=== PATIENT | female | born 1970 | race Caucasian/White ===

== ENCOUNTER 2019-11-22 00:25 | Outpatient (CLI) | payer OTHER, SELFPAY ==
[2019-11-22 17:31] LABS: SARS-CoV-2 RNA PCR Negative
== END 2019-11-22 00:26 | disposition home or self-care (01) ==
LOC: ANHCOVIDDT 00:25
PROVIDERS: PCP Internal Medicine; Visit Provider Internal Medicine Gastroenterology
DX: Z01.812 Encounter for preprocedural laboratory examination (principal); Z20.828 Contact with and (suspected) exposure to other viral communicable diseases
CPT/HCPCS: 87635; C9803; U0003

== ENCOUNTER 2019-11-24 01:47 | Day surgery (SDC) | payer OTHER, SELFPAY ==
[2019-11-15 14:51] VITALS: BMI 32.1
[2019-11-24 07:29] VITALS: BP 147/80; PULSE 72; RESP 16; TEMP 35.7; O2SAT 97
[2019-11-24] MEDS: LACTATED RINGERS 1,000 ML 150 ML IV CONT (07:44)
--- NOTE | 2019-11-24 07:49 | WPDANESEPPF ---
Anes - Initial Pre Proc Eval Procedure: Operation Date: 11/24/19 08:30 Proposed Procedures p Screening Colonoscopy - Neville Nunez MD Date/Time: 11/24/19 07:49 Surgeon: Neville Nunez MD Pre Op Diagnosis: Neoplasm Screening Patient Data Age: 49 Gender: F Height: 5 ft 4 in Weight: 87.5 kg Last Vital Signs Temp 35.7 C L 11/24/19 07:29 Pulse 72 11/24/19 07:29 Resp 16 11/24/19 07:29 BP 147/80 H 11/24/19 07:29 Pulse Ox 97 11/24/19 07:29 Allergies Allergy/AdvReac Type Severity Reaction Status Date / Time No Known Allergies Allergy Verified 11/24/19 07:27 Home Medications Medication Instructions Recorded Confirmed Type alprazolam 0.25 mg PO PRN PRN 11/15/19 11/24/19 History ascorbic acid (vitamin C) [Vitamin 1,000 mg PO DAILY 11/15/19 11/24/19 History C] losartan 50 mg PO DAILY 11/15/19 11/15/19 History multivitamin 1 cap PO DAILY 11/15/19 11/24/19 History omega 8-eor-alx-fish oil [Fish Oil] 1 cap PO DAILY 11/15/19 11/24/19 History gabapentin 100 mg PO HS 11/24/19 11/24/19 History meloxicam 75 mg PO BID 11/24/19 11/24/19 History Patient hx anesthesia problems: none Family hx anesthesia problems: none PMFSH Past Medical History Medical History HTN (hypertension) Obesity Smoker Surgical History Surgical History (Updated 11/24/19 @ 07:50 by Prashanth Ramirez MD) H/O arthroscopic knee surgery History of section Hx of tonsillectomy Social History Social History (Updated 11/24/19 @ 07:50 by Prashanth Ramirez MD) Smoking packs per day: 1 Smoking cigarettes per day: 20.0 Smoking status: Current every day smoker Anes - Eval Final PreProcedure Day of Procedure 11/24/19 07:49 Patient weight: obese Heart: regular rate and rhythm Lungs: clear to auscultation Airway: Mallampati scale class II Neurological: alert and oriented Last oral intake: >/= 8 hours ASA classification: III Emergent: no Anesthetic plan: proceed Anesthesia type and monitoring: general Informed Consent: The patient's anesthetic plan and its attendant risks and benefits were discussed with the patient/family/POA. Questions were solicited and answers provided to the satisfaction of the patient/family/POA.
--- NOTE | 2019-11-24 07:51 | P.HP_ITS ---
History of Present Illness History of Present Illness Consent: Risks, benefits, and alternatives have been discussed and questions answered. Patient agrees to proceed with procedure. Chief complaint: Neoplasm Screening Narrative: Jenifer Garrison is a 49 year old W female referred for her 1st screening colonoscopy. Patient is asymptomatic and there is no family history of colon polyps or colon cancer. [facility] Past Medical History Medical History HTN (hypertension) Obesity Smoker Surgical History Surgical History H/O arthroscopic knee surgery History of section Hx of tonsillectomy Social History Social History Smoking packs per day: 1 Smoking cigarettes per day: 20.0 Smoking status: Current every day smoker Meds Home Medications and Allergies Home Medications Medication Instructions Recorded Confirmed Type alprazolam 0.25 mg PO PRN PRN 11/15/19 11/24/19 History ascorbic acid (vitamin C) [Vitamin 1,000 mg PO DAILY 11/15/19 11/24/19 History C] losartan 50 mg PO DAILY 11/15/19 11/15/19 History multivitamin 1 cap PO DAILY 11/15/19 11/24/19 History omega 2-hsa-ruu-fish oil [Fish Oil] 1 cap PO DAILY 11/15/19 11/24/19 History gabapentin 100 mg PO HS 11/24/19 11/24/19 History meloxicam 75 mg PO BID 11/24/19 11/24/19 History Allergies Allergy/AdvReac Type Severity Reaction Status Date / Time No Known Allergies Allergy Verified 11/24/19 07:27 Vital Signs Vital Signs - 24 hr 11/24/19 07:29 Temperature 35.7 C L Pulse Rate 72 Respiratory Rate 16 Blood Pressure 147/80 H Pulse Oximetry 97 Exam Const: Orientation/consciousness: patient oriented x3 Resp: Auscultation: clear to auscultation bilaterally Cardio: Rate: regular rate Rhythm: regular rhythm Heart sounds: no murmurs GI: GI Palp: Yes Soft to palpation, No Tenderness to palpation present (GI), Yes No hepatosplenomegaly present and No Palpable mass present Auscultation: normal bowel sounds Neuro: General: patient oriented x3 and no focal motor deficits Extrem: General: no pedal edema Assessment and Plan Additional Plan Screening colonoscopy in average risk patient
[2019-11-24 08:53] VITALS: BP 126/83; PULSE 76; RESP 22; O2SAT 100
[2019-11-24 09:03] VITALS: BP 136/65; PULSE 71; RESP 17; O2SAT 100
[2019-11-24 09:13] VITALS: BP 118/75; PULSE 63; RESP 20; O2SAT 100
== END 2019-11-24 09:32 | disposition home or self-care (01) ==
PROVIDERS: PCP Internal Medicine; Visit Provider Internal Medicine Gastroenterology
PROC: 0DJD8ZZ Inspection of Lower Intestinal Tract, Via Natural or Artificial Opening Endoscopic (ICD-10-PCS; CPT 45378; principal; 2019-11-24 08:30)
DX: Z12.11 Encounter for screening for malignant neoplasm of colon (principal); K63.5 Polyp of colon; K62.1 Rectal polyp; K64.8 Other hemorrhoids; K64.4 Residual hemorrhoidal skin tags; I10 Essential (primary) hypertension; E66.9 Obesity, unspecified; Z68.33 Body mass index [BMI] 33.0-33.9, adult; F17.200 Nicotine dependence, unspecified, uncomplicated
CPT/HCPCS: 45380; 88305; J2704; J7120

== ENCOUNTER → 2023-01-02 15:39 | Outpatient (CLI) | payer BC, SELFPAY ==
--- NOTE | ~2023-01-02 | CT_ITS ---
EXAMINATION: CT lung screening DATE: 01/02/2023 15:58 INDICATION: personal hx of nicotine dependence TECHNIQUE: Computed tomography (CT) of the chest was performed without intravenous contrast. Addition al 3D reconstructions utilizing coronal maximum intensity projection (MIP) were performed. Automated exposure control and iterative reconstruction technique were employed. The dose-length product was 14 5.52 mGy-cm. COMPARISON: None FINDINGS: 2 mm left lower lobe nodule along the major fissure on series 4, image 15 and 1 mm nodule in the righ t middle lobe on image 77. No other larger suspicious pulmonary nodules, pulmonary edema, pneumonia o r pleural effusion. Heart size is normal. Small amount of atherosclerotic coronary artery calcific le patricio. No pericardial effusion. Thoracic aorta is normal in caliber. No pathologically enlarged thorac ic lymphadenopathy. Visualized upper abdomen is unremarkable. Mild thoracic spondylosis. IMPRESSION: 1. . Lung-RADS category 2: Benign appearance or behavior. Continue annual screening with noncontrast low-dose chest CT in 12 months. Reviewed, dictated and finalized at location B. IMPRESSION: 1. . Lung-RADS category 2: Benign appearance or behavior. Continue annual scree jh with noncontrast low-dose chest CT in 12 months.
== END ==
PROVIDERS: PCP Internal Medicine; Visit Provider Internal Medicine
DX: Z12.2 Encounter for screening for malignant neoplasm of respiratory organs (principal); Z87.891 Personal history of nicotine dependence
CPT/HCPCS: 71271

== ENCOUNTER 2024-02-02 11:46 | Outpatient (CLI) | payer BC, OTHER, SELFPAY ==
--- NOTE | ~2024-02-02 | CT_ITS ---
CT Scan of the Chest without Contrast: Clinical Indication: Lung cancer screening, nicotine dependence Technique: Contiguous sections were acquired throughout the chest without intravenous contrast. Dose reduction technique was used on this scan by utilizing automated exposure control and iterative recon struction technique. The dose-length product (DLP) was 113.45 mGy-cm. COMPARISON: 01/02/2023 Findings: There is no evidence of any significant mediastinal, hilar or axillary lymphadenopathy. The mediastin al soft tissues appear normal. There is no evidence of pleural or pericardial effusion. The lungs are clear. No pulmonary nodules or infiltrates are noted. Images through the upper abdomen reveal no abnormalities. Impression: Lung RADS 1: Negative. 12 month follow-up screening CT advised. Reviewed, dictated and finalized at location . Impression: Lung RADS 1: Negative. 12 month follow-up screening CT advised.
== END 2024-02-02 11:47 ==
PROVIDERS: PCP Internal Medicine; Visit Provider Internal Medicine
DX: Z12.2 Encounter for screening for malignant neoplasm of respiratory organs (principal); F17.210 Nicotine dependence, cigarettes, uncomplicated
CPT/HCPCS: 71271

== ENCOUNTER 2024-07-08 01:09 | Day surgery (SDC) | payer BC, OTHER, SELFPAY ==
[2024-06-23 12:53] VITALS: BMI 33.7
[2024-07-08 09:47] VITALS: BP 152/85; PULSE 79; RESP 20; TEMP 36.1; O2SAT 98
[2024-07-08] MEDS: LACTATED RINGERS 1,000 ML 150 ML IV CONT (09:58)
--- NOTE | 2024-07-08 10:17 | WPDANESEPPF ---
Anes - Initial Pre Proc Eval Procedure: Operation Date: 07/08/24 11:00 Proposed Procedures p Esophagogastroduodenoscopy & Colonoscopy - Jerry Salmeron MD Date/Time: 07/08/24 10:17 Surgeon: Jerry Salmeron MD Pre Op Diagnosis: anemia Patient Data Age: 53 Gender: F Height: 1.63 m Weight: 86.6 kg Last Vital Signs Temp 97 F L 07/08/24 09:47 Pulse 79 07/08/24 09:47 Resp 20 07/08/24 09:47 BP 152/85 H 07/08/24 09:47 Pulse Ox 98 07/08/24 09:47 O2 Del Method Room Air 07/08/24 09:47 Allergies Allergy/AdvReac Type Severity Reaction Status Date / Time No Known Allergies Allergy Verified 07/08/24 09:45 Home Medications ?Medication ?Instructions ?Recorded ?Confirmed ?Type alprazolam 0.25 mg tablet 0.5 mg PO BID PRN Anxiety 11/15/19 07/08/24 History ascorbic acid (vitamin C) 1,000 mg 1,000 mg PO DAILY 11/15/19 07/08/24 History tablet (Vitamin C) losartan 50 mg tablet 50 mg PO DAILY 11/15/19 07/08/24 History multivitamin 1 cap PO DAILY 11/15/19 07/08/24 History omega 2-ahx-ujq-fish oil 1,000 mg 1 cap PO DAILY 11/15/19 07/08/24 History (120 mg-180 mg) capsule (Fish Oil) gabapentin 100 mg capsule 100 mg PO HS 11/24/19 07/08/24 History meloxicam 7.5 mg tablet 75 mg PO BID 11/24/19 07/08/24 History atorvastatin 20 mg tablet 20 mg PO DAILY 06/23/24 07/08/24 History desvenlafaxine succinate 50 mg 75 mg PO DAILY 06/23/24 07/08/24 History tablet,extended release 24 hr Patient hx anesthesia problems: none Family hx anesthesia problems: none Results Review: All pre-operative results and documents have been reviewed as part of the pre-operative evaluation. [facility] Past Medical History Medical History Smoker HTN (hypertension) Obesity Surgical History Surgical History H/O arthroscopic knee surgery Hx of tonsillectomy History of section Social History Social History Smoking packs per day: 1 Smoking cigarettes per day: 20.0 Smoking status: Current every day smoker Tobacco type: cigarettes Substance use type: does not use Living arrangements: with family Spiritual care concerns: No Anes - Eval Final PreProcedure Day of Procedure 07/08/24 10:17 Patient weight: obese Heart: regular rate and rhythm Lungs: clear to auscultation Airway: Mallampati scale class II Neurological: alert and oriented Last oral intake: >/= 8 hours ASA classification: III Emergent: no Anesthetic plan: proceed Anesthesia type and monitoring: general GIVS and standard monitoring Results Review: All pre-operative results and documents have been reviewed as part of the pre-operative evaluation. Informed Consent: The patient's anesthetic plan and its attendant risks and benefits were discussed with the patient/family/POA. Questions were solicited and answers provided to the satisfaction of the patient/family/POA.
--- NOTE | 2024-07-08 10:22 | PM.HPGS ---
History of Present Illness History of Present Illness Consent: Risks, benefits, and alternatives have been discussed and questions answered. Patient agrees to proceed with procedure. Chief complaint: anemia Narrative: Jenifer Garrison is a 53 year old female here for egd and colonoscopy, had colon polyp 4-5 years ago, denies gib, no abdominal pain. Review of Systems Review of Systems: All systems reviewed & are unremarkable except as noted in HPI and below PMFSH Past Medical History Medical History (Updated 07/08/24 @ 10:25 by Jerry Salmeron MD) Anemia Smoker HTN (hypertension) Obesity Surgical History Surgical History H/O arthroscopic knee surgery Hx of tonsillectomy History of section Social History Social History Smoking packs per day: 1 Smoking cigarettes per day: 20.0 Smoking status: Current every day smoker Tobacco type: cigarettes Substance use type: does not use Living arrangements: with family Spiritual care concerns: No Meds Home Medications and Allergies Home Medications ?Medication ?Instructions ?Recorded ?Confirmed ?Type alprazolam 0.25 mg tablet 0.5 mg PO BID PRN Anxiety 11/15/19 07/08/24 History ascorbic acid (vitamin C) 1,000 mg 1,000 mg PO DAILY 11/15/19 07/08/24 History tablet (Vitamin C) losartan 50 mg tablet 50 mg PO DAILY 11/15/19 07/08/24 History multivitamin 1 cap PO DAILY 11/15/19 07/08/24 History omega 9-gxn-zhl-fish oil 1,000 mg 1 cap PO DAILY 11/15/19 07/08/24 History (120 mg-180 mg) capsule (Fish Oil) gabapentin 100 mg capsule 100 mg PO HS 11/24/19 07/08/24 History meloxicam 7.5 mg tablet 75 mg PO BID 11/24/19 07/08/24 History atorvastatin 20 mg tablet 20 mg PO DAILY 06/23/24 07/08/24 History desvenlafaxine succinate 50 mg 75 mg PO DAILY 06/23/24 07/08/24 History tablet,extended release 24 hr Allergies Allergy/AdvReac Type Severity Reaction Status Date / Time No Known Allergies Allergy Verified 07/08/24 09:45 Vital Signs Vital Signs - 24 hr 07/08/24 09:47 Temperature 97 F L Pulse Rate 79 Respiratory Rate 20 Blood Pressure 152/85 H Pulse Oximetry 98 Oxygen Delivery Room Air Exam Const: General: comfortable and no acute distress HENMT: Face/Nose/Sinus: Normal nares present Eyes: General: appearance normal, both eyes and all related structures Neck: Neck: no JVD Resp: Auscultation: clear to auscultation bilaterally Cardio: Rate: regular rate Rhythm: regular rhythm GI: Inspection: non-distended GI Palp: Yes Soft to palpation Skin: General skin exam: normal color Neuro: General: gait normal Speech: normal speech Extrem: General: normal to inspection Psych: Mental Status: mental status grossly normal Assessment and Plan Assessment and plan (1) Anemia: Code(s): D64.9 - Anemia, unspecified Status: Acute Assessment and Plan: no overt gib egd and colonoscopy to assess if gi source
--- NOTE | 2024-07-08 10:35 | SUR.OPER ---
EGD ended at 1030, colon began at 1035
[2024-07-08 10:46] VITALS: BP 108/80; PULSE 76; RESP 17; O2SAT 100
[2024-07-08 10:56] VITALS: BP 115/72; PULSE 75; RESP 17; O2SAT 100
[2024-07-08 11:06] VITALS: BP 125/76; PULSE 72; RESP 23; O2SAT 100
== END 2024-07-08 11:25 | disposition home or self-care (01) ==
PROVIDERS: PCP Internal Medicine; Visit Provider Internal Medicine Gastroenterology
PROC: 0DJ08ZZ Inspection of Upper Intestinal Tract, Via Natural or Artificial Opening Endoscopic (ICD-10-PCS; CPT 45378; principal; 2024-07-08 11:00)
DX: D64.9 Anemia, unspecified (principal); K64.8 Other hemorrhoids; K29.50 Unspecified chronic gastritis without bleeding; I10 Essential (primary) hypertension; F17.210 Nicotine dependence, cigarettes, uncomplicated; E66.9 Obesity, unspecified; Z68.32 Body mass index [BMI] 32.0-32.9, adult; Z98.890 Other specified postprocedural states; Z86.0100 Personal history of colon polyps, unspecified
CPT/HCPCS: 43239; 45378; 88305; J2704; J7120

== ENCOUNTER 2025-03-30 15:56 | Outpatient (CLI) | payer BC, OTHER, SELFPAY ==
--- NOTE | ~2025-03-30 | CT_ITS ---
EXAMINATION: CT lung screening DATE: 03/30/2025 16:14 INDICATION: hx of nicotine dependence TECHNIQUE: Computed tomography (CT) of the chest was performed without intravenous contrast. Additional 3D reconstructions utilizing coronal maximum intensity projection (MIP) were performed. Automated exposure control and iterative reconstruction technique were employed. The dose-length product was 14 0.97 mGy-cm. COMPARISON: 02/02/2024 FINDINGS: Unchanged 2 mm nodule in the right upper lobe on series 4, image 44. No other pulmonary nodules identified. No pneumonia, pulmonary edema or pleural effusion. Heart size normal. Small of atherosclerotic coronary artery calcium location and aortic valve calcific location. No pericardial effusion. Thoracic aorta is normal in caliber. No pathologically enlarged thoracic lymphadenopathy. Moderate thoracic spondylosis. IMPRESSION: 1. . Lung-RADS category 2: Benign appearance or behavior. Continue annual screening with noncontrast low-dose chest CT in 12 months. Reviewed, dictated and finalized at location A. IMPRESSION: 1. . Lung-RADS category 2: Benign appearance or behavior. Continue annual scree jh with noncontrast low-dose chest CT in 12 months.
== END 2025-03-30 15:57 | disposition home or self-care (01) ==
LOC: MICIMG 15:56
PROVIDERS: PCP Internal Medicine; Visit Provider Internal Medicine
DX: Z12.2 Encounter for screening for malignant neoplasm of respiratory organs (principal); Z87.891 Personal history of nicotine dependence
CPT/HCPCS: 71271